=== PATIENT | female | born 1980 | race African-American/Black ===

== ENCOUNTER 2024-01-11 12:23 | Emergency (ER) | payer SELFPAY ==
[~2024-01-11] VITALS: Ht 160 cm; Wt 55.0 kg
[2024-01-11 13:38] LABS: BASOPHILS % 1.4 % (0.0-2.0); HEMATOCRIT. 43.2 % (42.0-52.0); HEMOGLOBIN. 14.2 g/dL (14.0-18.0); LYMPHOCYTES % 46.3 % (20.0-50.0); MEAN CORPUSCULAR HGB CONC 32.8 g/dL (31.0-37.0); MEAN CORPUSCULAR VOLUME 94.5 fL (80.0-94.0); MEAN PLATELET VOLUME 8.7 fl (7.4-10.4); MONOCYTES % 9.3 % (2.0-8.0); PLATELET 295 x1000/uL (130-400); RED BLOOD CELL COUNT 4.58 mill/uL (4.7-6.1); RED CELL DISTRIBUTION WIDTH 14.3 % (11.6-14.6); WHITE BLOOD COUNT 5.5 x1000/uL (4.5-11.0)
[2024-01-11 13:43] LABS: HCG SCREEN NEGATIVE
[2024-01-11 13:51] LABS: CARBON DIOXIDE 21 mEq/L (21-32); CHLORIDE 108 mEq/L (98-107); POTASSIUM 3.6 mEq/L (3.5-5.1); SODIUM 141 mEq/L (136-145)
[2024-01-11 13:52] LABS: CALCIUM 10.1 mg/dL (8.7-10.4)
[2024-01-11 13:57] LABS: GLUCOSE 86 mg/dL (70-105); UREA NITROGEN BLOOD 22 mg/dL (9-23)
[2024-01-11 13:59] LABS: ACETAMINOPHEN < 2 ug/mL (10-30)
[2024-01-11 14:05] LABS: ETHANOL BLOOD < 10 mg/dL (<10)
[2024-01-11] MEDS ORDERED: ZIPRASIDONE HCL 40MG CAPSULE PO ONE (14:15)
[2024-01-11] MEDS ORDERED: DIPHENHYDRAMINE 25MG CAPSULE PO ONE (14:15)
[2024-01-11 15:48] LABS: *AMPHETAMINES SCREEN URINE NEGATIVE (NEGATIVE)
[2024-01-11 15:49] LABS: *BARBITURATES SCREEN URINE NEGATIVE (NEGATIVE); *BENZODIAZEPINES SCREEN URINE NEGATIVE (NEGATIVE); *COCAINE SCREEN URINE NEGATIVE (NEGATIVE); CANNABINOID URINE SCREEN PRESUMPTIVE POSITIVE (NEGATIVE); METHADONE URINE SCREEN NEGATIVE (NEGATIVE); OPIATES URINE SCREEN NEGATIVE (NEGATIVE); PHENCYCLIDINE URINE SCREEN NEGATIVE (NEGATIVE)
[2024-01-11] MEDS ORDERED: DIPHENHYDRAMINE 25MG CAPSULE PO SCH (17:00)
[2024-01-11] MEDS: DIPHENHYDRAMINE 50MG/ML VIAL IM ONE (18:05)
[2024-01-11] MEDS: LORAZEPAM 2MG/ML INJ IM ONE (18:05)
[2024-01-11] MEDS: ZIPRASIDONE MESYLATE 20MG/VIAL IM ONE (18:06)
[2024-01-12] MEDS: LORAZEPAM 2MG/ML INJ IM ONE (13:20)
[2024-01-12] MEDS: OLANZAPINE 10 MG/VIAL IM ONE (13:20)
[2024-01-12 15:30] VITALS: O2SAT 100
[2024-01-13] MEDS ORDERED: OLANZAPINE 10 MG/VIAL IM ONE (01:45)
[2024-01-13] MEDS ORDERED: LORAZEPAM 2MG/ML INJ IM ONE (01:45)
[2024-01-13] MEDS: OLANZAPINE 10 MG/VIAL IM NR (03:00)
[2024-01-13] MEDS: LORAZEPAM 2MG/ML INJ IM NR (03:00)
[2024-01-13 09:59] LABS: CLARITY URINE CLEAR (CLEAR); COLOR URINE YELLOW (YELLOW); GLUCOSE URINE NEGATIVE (NEGATIVE); KETONES URINE NEGATIVE (NEGATIVE); LEUKOCYTE ESTERASE URINE NEGATIVE (NEGATIVE); NITRITE URINE NEGATIVE (NEGATIVE); OCCULT BLOOD URINE NEGATIVE (NEGATIVE); PH URINE 6.5 (4.5-8.0); PROTEIN URINE NEGATIVE (NEGATIVE); SPECIFIC GRAVITY URINE 1.025 (1.005-1.030); UROBILINOGEN URINE 0.2 E.U./dL (0.2-1.0)
[2024-01-13] MEDS: ZIPRASIDONE MESYLATE 20MG/VIAL IM ONE (15:02)
[2024-01-13] MEDS: DIPHENHYDRAMINE 50MG/ML VIAL IM ONE (15:02)
[2024-01-13 15:25] VITALS: BP 144/87; PULSE 100; RESP 20; TEMP 98
[2024-01-13] MEDS ORDERED: OLANZAPINE 5MG TABLET ODT PO SCH (21:00)
== END 2024-01-13 17:47 ==
LOC: EDBD 12:23 → ER 12:23 → EDSEX 12:23 → ER 01-13 17:47
DX: F22 Delusional disorders (principal); Z20.822 Contact with and (suspected) exposure to COVID-19
CPT/HCPCS: 80305; 80048; 80307; 80329; 80320; 84703; 85025; 36415; 96372 ×2; 99285; 87426; 81003; J1200 ×2; J2060 ×3; J3486 ×2; Z7610 ×5; J3490 ×2; Q0163; G0480